=== PATIENT | female | born 1955 | race Two or more races ===

== ENCOUNTER 2023-09-10 04:06 | Inpatient (IN) | payer OTHER ==
[2023-09-06 10:44] VITALS: BMI 29.6
[2023-09-10] MEDS ORDERED: THROMBIN (BOVINE) 5,000 UNIT VIAL TP ONE (07:13)
[2023-09-10] MEDS ORDERED: ceFAZolin SODIUM 1 GM VIAL ONE (07:13)
[2023-09-10] MEDS ORDERED: HYDROmorphone HCl 2 MG/ML VIAL ONE (07:59)
[2023-09-10] MEDS ORDERED: SUCCINYLCHOLINE CHLORIDE 200 MG/10 ML SYRINGE ONE (07:59)
[2023-09-10] MEDS ORDERED: PROPOFOL 80 ML ONE (07:59)
[2023-09-10] MEDS ORDERED: MIDAZOLAM HCL 2 MG/2 ML SINGLE DOSE VIAL ONE (07:59)
[2023-09-10] MEDS ORDERED: ONDANSETRON 4 MG/2 ML VIAL ONE (08:00)
[2023-09-10] MEDS ORDERED: LIDOCAINE HCL/PF 2% SDV 5ML VIAL ONE (08:00)
[2023-09-10] MEDS ORDERED: VANCOMYCIN 1,000 MG VIAL (RESTRICTED TO ID ONLY) ONE ×2 (08:00→09:02)
[2023-09-10] MEDS ORDERED: DEXAMETHASONE SOD PHOSPHATE 4 MG/1 ML VIAL ONE ×2 (08:00→09:33)
[2023-09-10] MEDS ORDERED: GENTAMICIN SO4 80 MG/2 ML VIAL ONE (08:07)
[2023-09-10] MEDS ORDERED: PROPOFOL 20 ML ONE ×5 (08:40→11:53)
[2023-09-10] MEDS ORDERED: KETAMINE HCL 200 MG/20 ML VIAL ONE (08:53)
[2023-09-10] MEDS ORDERED: ALBUTEROL SO4 HFA INHALER IH ONE (08:58)
[2023-09-10] MEDS ORDERED: ROCURONIUM BROMIDE 50 MG/5 ML SYRINGE ONE (09:16)
[2023-09-10] MEDS ORDERED: PROPOFOL 60 ML ONE (09:17)
[2023-09-10] MEDS: VANCOMYCIN 1 GM in NS (PRE-DOCKED) 1,000 MG/250 ML (RESTRICTED TO ID ONLY) IVPB ONE (09:25)
[2023-09-10] MEDS: THROMBIN (BOVINE) 5,000 UNIT VIAL TP ONE ×2 (09:46)
[2023-09-10] MEDS ORDERED: PROPOFOL 40 ML ONE ×3 (10:28→11:22)
[2023-09-10] MEDS ORDERED: hydrALAZINE HCL 20 MG/ML VIAL ONE (11:32)
[2023-09-10] MEDS ORDERED: oxyCODONE HCL 5 MG TABLET PO PRN ×3 (12:31→13:01)
[2023-09-10] MEDS ORDERED: ONDANSETRON 4 MG/2 ML VIAL IVPUSH PRN (12:31)
[2023-09-10] MEDS ORDERED: PROMETHAZINE HCL 25 MG/1 ML VIAL IVPB PRN ×2 (12:31→13:14)
[2023-09-10] MEDS ORDERED: ACETAMINOPHEN 1000 MG/100 ML BAG IVPB PRN (12:32)
[2023-09-10] MEDS: ACETAMINOPHEN 1000 MG/100 ML BAG IVPB PRN (13:11)
[2023-09-10] MEDS ORDERED: HYDROmorphone HCL CARPU-JECT 2 MG/1 ML DISP.SYRIN ONE (14:22)
[2023-09-10] MEDS: HYDROmorphone HCL CARPU-JECT 2 MG/1 ML DISP.SYRIN IVPUSH PRN (14:23)
[2023-09-10] MEDS: oxyCODONE HCL 5 MG TABLET PO PRN (15:50)
[2023-09-10] MEDS: ROSUVASTATIN CA 20 MG TABLET PO SCH (21:18)
[2023-09-10] MEDS: MONTELUKAST NA 10 MG TABLET PO SCH (21:20)
[2023-09-10] MEDS: BUSPIRONE HCL 10 MG, BUSPIRONE HCL 5 MG PO SCH (22:29)
[2023-09-10] MEDS: FLUTICASONE/SALMETEROL (WIXELA) 100 MCG/50 MCG DISKUS IH SCH (22:30)
[2023-09-10] MEDS: LACTATED RINGERS SOLUTION 1,000 ML IV SCH (23:07)
[2023-09-11] MEDS: amLODIPine BESYLATE 5 MG TABLET (FP) PO SCH (09:56)
[2023-09-11] MEDS: LOSARTAN POTASSIUM 50 MG TABLET PO SCH (09:56)
[2023-09-11] MEDS: HYDROCHLOROTHIAZIDE 12.5 MG CAPSULE (FP) PO SCH (09:56)
[2023-09-11 10:13] LABS: HEMATOCRIT 36.8 % (32.4-45.2); HEMOGLOBIN 12.2 GM/dL (10.7-15.3); MCH 30.9 pg (25.7-33.7); MCHC 33.1 g/dl (32.0-36.0); MEAN CELL VOLUME 93.3 fl (80-96); MEAN PLT VOLUME 7.8 fl (7.5-11.1); PLATELET COUNT 398 10^3/uL (134-434); RBC 3.94 M/mm3 (3.60-5.2); RDW 13.8 % (11.6-15.6); WHITE BLOOD COUNT 22.4 K/mm3 (4.0-10.0)
[2023-09-11 10:33] LABS: ANISOCYTOSIS 0; MACROCYTOSIS 0
[2023-09-11 10:37] LABS: POTASSIUM 3.8 mmol/L (3.5-5.1)
[2023-09-11 10:39] LABS: ALBUMIN 3.6 g/dl (3.4-5.0); CALCIUM 9.5 mg/dL (8.5-10.1)
[2023-09-11 10:45] LABS: BILIRUBIN,TOTAL 0.4 mg/dL (0.2-1); TOT PROT 7.2 g/dl (6.4-8.2)
[2023-09-11] MEDS: SENNOSIDES 8.6MG TABLET (FP) PO SCH (12:03)
[2023-09-11] MEDS ORDERED: oxyCODONE HCL 5 MG TABLET PO PRN (13:01)
[2023-09-11] MEDS: ACETAMINOPHEN 500 MG TABLET (FP) PO SCH (16:57)
[2023-09-11] MEDS: CYCLOBENZAPRINE HCL 5 MG TABLET PO SCH (16:57)
[2023-09-11] MEDS: HEPARIN NA (PORCINE) 5,000 UNITS/ML 1ML VIAL SQ SCH (21:22)
[2023-09-12 08:03] LABS: POTASSIUM 3.6 mmol/L (3.5-5.1)
[2023-09-12 08:09] LABS: ALBUMIN 3.7 g/dl (3.4-5.0); CALCIUM 9.5 mg/dL (8.5-10.1)
[2023-09-12 08:10] LABS: BLOOD UREA NITROGEN 12.9 mg/dL (7-18)
[2023-09-12 08:11] LABS: BASO % 0.2 % (0-2.0); EOS % 0.2 % (0-4.5); HEMATOCRIT 36.9 % (32.4-45.2); HEMOGLOBIN 12.6 GM/dL (10.7-15.3); LYMPH % 31.3 % (8-40); MCH 31.5 pg (25.7-33.7); MCHC 34.2 g/dl (32.0-36.0); NEUT % 60.3 % (42.8-82.8); PLATELET COUNT 406 10^3/uL (134-434); RBC 4.01 M/mm3 (3.60-5.2); RDW 13.8 % (11.6-15.6); WHITE BLOOD COUNT 19.5 K/mm3 (4.0-10.0)
[2023-09-12 08:12] LABS: CREATININE 0.6 mg/dL (0.55-1.3)
[2023-09-12 08:14] LABS: BILIRUBIN,TOTAL 0.6 mg/dL (0.2-1); TOT PROT 7.4 g/dl (6.4-8.2)
[2023-09-12 10:54] VITALS: BP 148/84; PULSE 76; RESP 18; TEMP 98.8
== END 2023-09-12 11:55 | disposition home or self-care (01) | DRG 473 ==
LOC: JASUSAT 04:06 → EDSTATUS 08:00 → J8W 15:18 → JASUSAT 18:10
PROVIDERS: ADMIT Neurological Surgery; ATTEND Nurse Practitioner Acute Care
PROC: 00NW0ZZ Release Cervical Spinal Cord, Open Approach (ICD-10-PCS; 2023-09-10)
PROC: 01N10ZZ Release Cervical Nerve, Open Approach (ICD-10-PCS; 2023-09-10)
PROC: 0RB30ZZ Excision of Cervical Vertebral Disc, Open Approach (ICD-10-PCS; 2023-09-10)
PROC: 4A11X4G Monitoring of Peripheral Nervous Electrical Activity, Intraoperative, External Approach (ICD-10-PCS; 2023-09-10)
PROC: 0RG20A0 Fusion of 2 or more Cervical Vertebral Joints with Interbody Fusion Device, Anterior Approach, Anterior Column, Open Approach (ICD-10-PCS; principal; 2023-09-10 08:00)
DX: M50.023 Cervical disc disorder at C6-C7 level with myelopathy (principal); M50.123 Cervical disc disorder at C6-C7 level with radiculopathy; M40.292 Other kyphosis, cervical region; M48.02 Spinal stenosis, cervical region; M50.022 Cervical disc disorder at C5-C6 level with myelopathy; M50.122 Cervical disc disorder at C5-C6 level with radiculopathy; M50.021 Cervical disc disorder at C4-C5 level with myelopathy; M50.121 Cervical disc disorder at C4-C5 level with radiculopathy; I10 Essential (primary) hypertension; E78.5 Hyperlipidemia, unspecified; J45.909 Unspecified asthma, uncomplicated; M25.511 Pain in right shoulder; G89.18 Other acute postprocedural pain
CPT/HCPCS: 36415; 72040-TC; 76000-TC-FY; 80053; 85025; 86850; 86900; 86901; 94010; 94760; 97116-GP; 97161-GP; C1713; C1889; J0131; J1644